=== PATIENT | male | born 1965 | race Caucasian/White ===

== ENCOUNTER 2017-07-21 10:21 | Inpatient (IN) ==
[2017-07-21] MEDS ORDERED: ALBUTEROL/IPRATROPIUM 3 ML NEB RESP TX STA ×2 (11:06→12:24)
--- NOTE | 2017-07-21 11:16 | Emergency Department Note ---
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 States problem originally started approximately a month ago with cough and congestion. Was seen at an outpatient clinic in [place] and prescribed bactrim and prednisone. States he was unable to take the bactrim due to rash. Approximately 3 days later he presented to ED in [place] with complaints of shortness of breath and congestion, was discharged from ED with azithromycin, but states he was unable to take due to nausea. States a few days after that he went back to the ED and was given Levaquin, which he states he could not take due to nausea as well. About 4 days later he presented to the ED in [place] and was admitted as an inpatient. At this time he was told he was positive for Strep in his throat, was admitted and given PCN IV as well as IM. He was discharged from [facility] on 2016 with augmentin and albuterol. States he took these meds for a couple of days and then went back to work this past Saturday (Jul 15). States symptoms became worse on this past (Jul 18) with fever, cough, shortness of breath. States these symptoms have gradually worsened over the past few days. Associated symptoms include a 40 lb weight loss over the past month and night sweats. Onset (ago): month(s) (1) Consistency: intermittent Severity: severe Quality: aching (right back in thoracic area) Allergies/Adverse Reactions: Allergies Allergy/AdvReac Type Severity Reaction Status Date / Time codeine Allergy RASH Verified 07/21/17 10:23 sulfamethoxazole Allergy RASH Verified 07/21/17 10:23 [From Bactrim] trimethoprim [From Bactrim] Allergy RASH Verified 07/21/17 10:23 Review of System - Review of System 12 point system: reviewed and no additional remarkable complaints except as stated - Review of System Constitutional: Present: fever (2-3 days ranging from 99-100F), night sweats, weight loss (40 lbs over one month) Head/Ears/Nose/Throat: Present: earache (right ear ), epistaxis (reports occassional nose bleeds over the past 2 weeks ), other (sneezing ). Absent: sore throat Respiratory: Present: cough (reports yellow/ brown sputum), other (shortness of breath) Medical,Surgical,& Family Hx - Medical History Cardio: No history of: CHF - Social History Smoking Status: Never smoker Frequency of Alcohol Use: None Type of Drug Use: None Exam Vital Signs: Vital Signs Temperature 98.2 F 07/21/17 10:24 Pulse Rate 103 H 07/21/17 14:27 Respiratory Rate 18 07/21/17 14:27 Blood Pressure 160/116 07/21/17 14:27 O2 Sat by Pulse Oximetry 93 L 07/21/17 14:27 - General General appearance: alert, in no apparent distress - Head Head exam: Present: normal inspection - Eye Eye exam: Present: PERRL - ENT ENT exam: Present: normal exam, normal oropharynx, mucous membranes moist, TM's normal bilaterally, other (no pharangeal erythema or petechiae) - Neck Neck exam: Present: normal inspection, full ROM - Chest Chest inspection: Present: normal inspection - Respiratory Respiratory exam: Present: accessory muscle use, other (crackles to right lower lung, expiratory rhonci to right upper lung ). Absent: stridor - Cardiovascular Cardiovascular exam: Present: regular rate, normal rhythm, normal heart sounds - Abdominal Exam Abdominal exam: Present: soft, normal bowel sounds. Absent: tenderness - Extremities Exam Extremities exam: Present: normal inspection, full ROM - Neurological Exam Neurological exam: Present: alert, oriented X3 - Psychiatric Psychiatric exam: Present: normal affect, normal mood - Skin Skin exam: Present: warm, dry Course Course Narrative: Patient refuses Solu-Medrol. - Consultations Consultation #1: Hospitalist Time: 14:44 (will admit to the Hospitalist ) Results - Labs CBC & BMP: 07/21/17 11:05 07/21/17 11:05 Lab Results: I have reviewed the patients labs - Diagnostic Findings Procedure: CT - chest: image reviewed by me, report reviewed by me (a few patchy areas of airspace density mass, around the hilum on the lef could indicate pneumonitis. Multiple pulmonary nodeules, some whice are calcified and sugguests a granulomatous infection. ), X-ray: image reviewed by me, report reviewed by me (no acute abnormality ) Disposition Clinical Impression: Dyspnea Case discussed with: patient Disposition: Still a Patient
--- NOTE | 2017-07-21 11:34 | XRay Report ---
XR chest 2V Indication: Cough Comparison: None available Findings: Findings: The heart and mediastinum are normal in size and configuration. The pulmonary vascularity is normal in caliber. There slight increased lung volumes and increased peribronchial density. No other abnormality is seen. Impression: Findings suggests bronchitis vs reactive airways disease. Underlying chronic lung disease may be present. PROCEDURE INTERPRETED AT [facility] DEPARTMENT OF RADIOLOGY Final Report Signed by: Dr. Philipp Montejo
[2017-07-21 11:47] LABS: Basophils # 0.1 10*3/uL (0.0-0.2); Basophils % 0.5 % (0.0-0.8); Eosinophils # 0.2 10*3/uL (0.0-0.87); Eosinophils % 1.6 % (0.00-10.9); Hematocrit 45.4 VOL% (42.0-52.0); Hemoglobin 15.4 GM/DL (14.0-18.0); Immature Granulocytes % 0.5 %; Immature Granulocytes Absolute 0.06 #; Lymphocytes # 1.1 10*3/uL (1.4-4.0); Lymphocytes % 8.5 % (21.2-54.2); Mean Corpuscular HGB Conc 33.9 GM/DL (32-36); Mean Corpuscular Hemoglobin 30 PG (27-34); Mean Corpuscular Volume 89.5 FL (87-102); Mean Platelet Volume 9.5 FL (9.6-12.0); Monocytes # 0.8 10*3/uL (0.11-0.8); Monocytes % 6.3 % (1.7-12.7); Neutrophils # 10.6 10*3/uL (1.4-7.4); Neutrophils % 82.6 % (38.7-73.9); Platelet Count 263 T/CUMM (130-400); Red Blood Count 5.07 MC/CUMM (3.8-5.5); Red Cell Distribution Width 12.6 % (9.3-17.3); White Blood Count 12.9 T/CUMM (4-12)
[2017-07-21 12:00] LABS: Alanine Aminotransferase 88 U/L (16-61); Albumin 3.3 G/DL (3.4-5.0); Alkaline Phosphatase 150 U/L (45-117); Aspartate Amino Transferase 53 U/L (0-37); Bilirubin,Total < 0.39 MG/DL (0.2-1.0); Blood Urea Nitrogen 19 MG/DL (7-18); Calcium 8.9 MG/DL (8.5-10.1); Glucose 91 MG/DL (74-106); Osmolality,Calculated 280.4 MOS/KG (273-304); Potassium 4.3 MMOL/L (3.5-5.1); Sodium 140 MMOL/L (136-145); Total Protein 7.3 G/DL (6.4-8.3)
[2017-07-21] MEDS ORDERED: methylPREDNISolone SOD SUC 125 MG/2 ML VIAL IV STA (12:25)
[2017-07-21] MEDS ORDERED: methylPREDNISolone SOD SUC 125 MG/2 ML VIAL ONE (13:03)
--- NOTE | 2017-07-21 14:24 | CT Report ---
CT chest w con Indication: Dyspnea, fever and weight loss Comparison: None available Technique: Axial CT imaging of the chest was done at 3 mm intervals with intravenous contrast. Contrast dose was 80 cc Omnipaque 350. Findings: The lungs show no evidence of infiltrates or airspace disease. Multiple scattered pulmonary nodules are present in both lungs, millimeters or less in size, some of which are calcified. There is small amount of patchy airspace density in the left lung mostly around the hilum and trace amount seen on the right. No other pulmonary nodule or mass is identified. No effusion or pneumothorax is seen. The heart, mediastinum and great vessels appear within normal limits. No other abnormality is identified. Impression: A few patchy areas of airspace density mass, around the hilum on the left could indicate pneumonitis. Multiple pulmonary nodules, some which are calcified and suggests a granulomatous infection. This CT exam was performed using one or more the following dose reduction techniques: Automated exposure control, adjustment of the MA and/or KV according to patient size, or use of iterative reconstruction technique. PROCEDURE INTERPRETED AT [facility] DEPARTMENT OF RADIOLOGY Final Report Signed by: Dr. Philipp Montejo
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
[2017-07-21 16:48] LABS: ABG Base Excess 2.9 MMOL/L (-2.5-2.5); ABG HCO3 26.9 MMOL/L (20-26); ABG Oxygen Saturation 93.6 % (95-100); ABG PCO2 43.7 MM HG (35-48); ABG PH 7.414 (7.35-7.45); ABG PO2 68.9 MM HG (80-95); ABG TCO2 23.8 MMOL/L (23-27); Allen Test Positive
[2017-07-21] MEDS ORDERED: LEVOFLOXACIN INJ 750 MG in PREMIX 1 EACH IV SCH (17:00)
[2017-07-21 18:48] LABS: HIV Antigen/Antibody Result Nonreactive (Nonreactive)
[2017-07-21] MEDS ORDERED: ONDANSETRON 4 MG/2 ML VIAL IV PRN (18:48)
[2017-07-21] MEDS ORDERED: DOCUSATE SODIUM 100 MG CAPSULE PO PRN (18:48)
[2017-07-21] MEDS ORDERED: ZALEPLON 5 MG CAPSULE PO PRN (18:48)
[2017-07-21] MEDS ORDERED: LACTULOSE 20 GM/30 ML UDCUP PO PRN (18:48)
[2017-07-21] MEDS ORDERED: LORazepam 2 MG/1 ML VIAL IV PRN (18:50)
[2017-07-21] MEDS: VANCOMYCIN INJ 1,250 MG in SODIUM CHLORIDE 0.9% 250 ML IV SCH (19:05)
[2017-07-21] MEDS: ALBUTEROL/IPRATROPIUM 3 ML NEB RESP TX PRN (20:29)
[2017-07-21] MEDS: ACYCLOVIR 200 MG CAPSULE PO SCH (21:14)
[2017-07-22 05:50] LABS: Basophils # 0.1 10*3/uL (0.0-0.2); Basophils % 0.9 % (0.0-0.8); Eosinophils # 0.4 10*3/uL (0.0-0.87); Eosinophils % 4.4 % (0.00-10.9); Hemoglobin 14.1 GM/DL (14.0-18.0); Immature Granulocytes % 0.2 %; Immature Granulocytes Absolute 0.02 #; Lymphocytes # 1.4 10*3/uL (1.4-4.0); Lymphocytes % 14.7 % (21.2-54.2); Mean Corpuscular HGB Conc 33.6 GM/DL (32-36); Mean Corpuscular Hemoglobin 30 PG (27-34); Mean Corpuscular Volume 90.5 FL (87-102); Mean Platelet Volume 9.6 FL (9.6-12.0); Monocytes % 10.1 % (1.7-12.7); Neutrophils # 6.7 10*3/uL (1.4-7.4); Neutrophils % 69.7 % (38.7-73.9); Platelet Count 236 T/CUMM (130-400); Red Blood Count 4.64 MC/CUMM (3.8-5.5); Red Cell Distribution Width 12.9 % (9.3-17.3); White Blood Count 9.6 T/CUMM (4-12)
[2017-07-22 06:22] LABS: Calcium 9.3 MG/DL (8.5-10.1); Osmolality,Calculated 276.7 MOS/KG (273-304); Potassium 4.7 MMOL/L (3.5-5.1)
[2017-07-22] MEDS: VANCOMYCIN INJ 1,250 MG in SODIUM CHLORIDE 0.9% 250 ML IV SCH ×2 (06:28→18:16)
[2017-07-22] MEDS: PANTOPRAZOLE 40 MG TABLET PO SCH (09:05)
[2017-07-22] MEDS: ACYCLOVIR 200 MG CAPSULE PO SCH ×3 (09:05→20:18)
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
--- NOTE | 2017-07-22 12:10 | Ultrasound Report ---
Venous Doppler ultrasound bilateral lower extremities Indication: Hypoxemia Comparison: None available Findings: No evidence of echogenic, noncompressible thrombus seen in the visualized veins of the extremities. Color Doppler venous waveform pattern is within normal limits. Impression: No evidence of deep venous thrombosis. Ultrasound images stored and captured. PROCEDURE INTERPRETED AT [facility] DEPARTMENT OF RADIOLOGY Final Report Signed by: Dr. Philipp Montejo
[2017-07-22 12:11] LABS: Hepatitis A Ab IgM Quant 0.14 Index; Hepatitis A Ab IgM Result Negative (Negative); Hepatitis B Core IgM Quant 0.12 Index; Hepatitis B Core IgM Result Negative (Negative); Hepatitis B Surface Ag Quant 0.15 Index; Hepatitis B Surface Ag Result Negative (Negative); Hepatitis C Virus Ab Quant 0.08 Index; Hepatitis C Virus Ab Result Negative (Negative); Prostate Specific Antigen Diag 0.8 NG/ML (0-4)
--- NOTE | 2017-07-22 12:22 | Ultrasound Report ---
Abdominal ultrasound Indication: Abdominal Pain, elevated liver function test Findings: The liver is normal in size and echogenicity. The gallbladder has been removed. The common bile duct measures 2 mm. The visualized portion of the pancreas appear within normal limits The kidneys normal in size and echogenicity without hydronephrosis or other abnormality. The right renal length is 10.4 cm. Left renal length is 10.5 cm. Spleen, aorta and IVC appear within normal limits. No free fluid or free air seen. Impression: No evidence of abnormality demonstrated. Ultrasound images stored and captured. PROCEDURE INTERPRETED AT [facility] DEPARTMENT OF RADIOLOGY Final Report Signed by: Dr. Philipp Montejo
--- NOTE | 2017-07-22 12:31 | Hospitalist Progress Note ---
Assessment and Plan (1) Nausea Status: Acute Assessment and plan: 1)weight loss- has had nausea persisting which he links to the meds he has been started on over the last month of seeking treatment for his dyspnea. 2)sweats at night- 3)dyspnea- starting [place]. has been treated for bronchitis/strep. stop antibiotics if cultures negative 4)difficulty voiding- Dr Sandhu to see. 5)transfer out of CCU. Current Visit: Yes (2) Weight loss Status: Acute Current Visit: Yes (3) COPD (chronic obstructive pulmonary disease) Status: Acute Current Visit: Yes (4) Dyspnea Status: Acute Current Visit: Yes (5) Elevated liver enzymes Status: Acute Current Visit: Yes (6) HSV-2 (herpes simplex virus 2) infection Status: Acute Current Visit: Yes (7) Pneumonitis Status: Acute Current Visit: Yes (8) Pectoris excavatum Status: Acute Current Visit: Yes Hospitalist: Subjective Interval history: Mr Stuart is doing better this morning. He is breathing better and coughing a little with scant sputum production. I have coordinated care with Dr Barksdale this morning. He reports a 25-30 pound weight loss over the last month. He denies pain or shortness of breath with exertion. It seems to primarily bother him in the night. Appreciate input from Dr Carroll also. Exam - Constitutional Vitals: Period Temp Pulse Resp BP Sys/Gamez Pulse Ox Last 24 Hr 97.6 F-99.9 F 81-103 17-38 109-160/83-116 93-98 General appearance: normal weight, no acute distress - Head Head exam: Present: normocephalic, atraumatic - Eye Eye exam: Present: EOMI. Absent: scleral icterus - Respiratory Respiratory exam: Present: clear to auscultation bilaterally - Cardiovascular Cardiovascular exam: Present: regular rate and rhythm - GI/Abdominal GI/Abdominal exam: Present: normal bowel sounds, soft. Absent: tenderness - Extremities Exam Extremities exam: Absent: edema - Neurological Exam Neurological exam: Present: alert, oriented X3 (very good historian) - Skin Skin exam: Present: normal color, warm, dry Results - Labs CBC & BMP: 07/22/17 04:24 07/22/17 04:24 Lab Results: I have reviewed the past 24 hour labs Quality Measures - Stroke Symptom Onset Unknown: No
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
[2017-07-22 13:13] LABS: Albumin 3.2 G/DL (3.4-5.0); Bilirubin,Total 0.4 MG/DL (0.2-1.0); Calcium 9.2 MG/DL (8.5-10.1); Osmolality,Calculated 275.7 MOS/KG (273-304); Potassium 4.5 MMOL/L (3.5-5.1); Total Protein 7.2 G/DL (6.4-8.3)
[2017-07-22] MEDS: ALBUTEROL/IPRATROPIUM 3 ML NEB RESP TX PRN ×2 (13:47→19:56)
[2017-07-22 14:11] LABS: Free T4 (Free Thyroxine) 1.15 NG/DL (0.76-1.46); Thyroid Stimulating Hormone 2.01 uIU/ml (0.358-3.74)
[2017-07-22] MEDS: PIPERACILLIN/TAZOBACTAM 3,375 MG in SODIUM CHLORIDE 0.9% 100 ML IV SCH ×2 (15:23→20:19)
[2017-07-22 17:24] LABS: Apearance,Urine CLEAR (Clear); Bilirubin,Urine Negative (Negative); Blood, Urine Negative (Negative); Glucose,Urine (UA) Negative (Negative); Ketones,Urine Negative (Negative); Mucus,Urine Occasional /LPF (Occasional); Nitrite,Urine Negative (Negative); Protein,Urine Negative; RBC,Urine 1 /HPF (0-4); Urine Color Yellow (Yellow); Urine Specific Gravity 1.013 (1.001-1.035); Urine Urobilinogen < 2.0 EU/DL (0.2-1.0); WBC,Urine <1 /HPF (0-6)
--- NOTE | 2017-07-22 20:33 | Order Completion Report ---
See report scanned to EMR
[2017-07-23] MEDS: PIPERACILLIN/TAZOBACTAM 3,375 MG in SODIUM CHLORIDE 0.9% 100 ML IV SCH ×3 (03:41→21:34)
--- NOTE | 2017-07-23 07:26 | XRay Report ---
XR chest 1V portable Indication: Shortness of breath Comparison: One July 2017 Findings: The heart and mediastinum are stable in size and configuration. The pulmonary vascularity is normal in caliber. A few scattered small nodular densities are present in both lungs similar to previous exam. No definite lung infiltrates, effusions, pneumothorax or other abnormality is demonstrated. Impression: No acute findings or significant changes. PROCEDURE INTERPRETED AT [facility] DEPARTMENT OF RADIOLOGY Final Report Signed by: Dr. Philipp Montejo
[2017-07-23 07:45] LABS: Basophils # 0.1 10*3/uL (0.0-0.2); Basophils % 0.8 % (0.0-0.8); Eosinophils # 0.4 10*3/uL (0.0-0.87); Eosinophils % 3.6 % (0.00-10.9); Hematocrit 45.4 VOL% (42.0-52.0); Hemoglobin 15.1 GM/DL (14.0-18.0); Immature Granulocytes % 0.4 %; Immature Granulocytes Absolute 0.04 #; Lymphocytes # 1.5 10*3/uL (1.4-4.0); Lymphocytes % 14.3 % (21.2-54.2); Mean Corpuscular HGB Conc 33.3 GM/DL (32-36); Mean Corpuscular Hemoglobin 30 PG (27-34); Mean Corpuscular Volume 90.6 FL (87-102); Mean Platelet Volume 9.2 FL (9.6-12.0); Monocytes # 0.9 10*3/uL (0.11-0.8); Monocytes % 9.1 % (1.7-12.7); Neutrophils # 7.3 10*3/uL (1.4-7.4); Neutrophils % 71.8 % (38.7-73.9); Platelet Count 237 T/CUMM (130-400); Red Blood Count 5.01 MC/CUMM (3.8-5.5); Red Cell Distribution Width 12.8 % (9.3-17.3); White Blood Count 10.1 T/CUMM (4-12)
--- NOTE | 2017-07-23 07:45 | Urology Progress Note ---
Urology - PN: Subj Interval history: So far the patient's urological evaluation is normal. His PSA is 0.8 his urinalysis is normal and abdominal ultrasound negative for urological problems. Bladder scan is pending Exam - Constitutional Vitals: Period Temp Pulse Resp BP Sys/Gamez Pulse Ox Last 24 Hr 97.4 F-98.6 F 78-112 16-26 126-145/81-101 91-99 Results - Labs CBC & BMP: 07/22/17 04:24 07/22/17 12:22
[2017-07-23 08:09] LABS: Calcium 9.4 MG/DL (8.5-10.1); Osmolality,Calculated 274.8 MOS/KG (273-304); Potassium 4.5 MMOL/L (3.5-5.1)
[2017-07-23] MEDS: ACYCLOVIR 200 MG CAPSULE PO SCH ×3 (08:13→21:34)
[2017-07-23] MEDS: VANCOMYCIN INJ 1,250 MG in SODIUM CHLORIDE 0.9% 250 ML IV SCH ×2 (08:13→18:14)
[2017-07-23] MEDS: PANTOPRAZOLE 40 MG TABLET PO SCH (08:13)
--- NOTE | 2017-07-23 08:20 | Hospitalist Progress Note ---
Assessment and Plan (1) Pneumonitis Status: Acute Assessment and plan: Chest x-ray demonstrated no evidence of an infiltrate. He continues treatment with vancomycin, Zosyn, and acyclovir. He is being followed by infectious diseases. I will defer decision about continuation of antibiotics to infectious diseases. Current Visit: Yes (2) Weight loss Status: Acute Current Visit: Yes (3) COPD (chronic obstructive pulmonary disease) Status: Acute Assessment and plan: He appears stable with no significant exacerbation of his chronic obstructive pulmonary disease. He continues to receive albuterol ipratropium nebulizer therapy. Current Visit: Yes Hospitalist: Subjective Interval history: Patient states that he feels significantly better since his hospitalization. He states that his wheezing has decreased and his shortness of breath improved. He is presently being treated with 2 antibiotics, as per infectious diseases. Exam - Constitutional Vitals: Period Temp Pulse Resp BP Sys/Gamez Pulse Ox Last 24 Hr 97.4 F-98.6 F 78-112 16-26 126-145/81-101 91-99 General appearance: no acute distress - Head Head exam: Present: normal inspection - Neck Neck exam: Present: normal inspection - Respiratory Respiratory exam: Present: other (Scattered wheezes.) - Cardiovascular Cardiovascular exam: Present: regular rate and rhythm - GI/Abdominal GI/Abdominal exam: Present: normal bowel sounds, soft, other (Nontender with no palpable masses or hepatosplenomegaly.) - Extremities Exam Extremities exam: Present: normal inspection - Neurological Exam Neurological exam: Present: alert, oriented X3 - Skin Skin exam: Present: normal color, warm, intact Results - Labs CBC & BMP: 07/23/17 07:27 07/23/17 07:27 Quality Measures - Stroke Symptom Onset Unknown: No
--- NOTE | 2017-07-23 12:32 | Pulmonology Progress Note ---
Pulmonary - PN: Subj Interval history: Jose Rafael Pierceery, [facility]-, acting as scribe for Dr. Anton Barksdale Mr. Stuart is a 51-year-old white male who is on initial pulmonary consultation on 07/22/2017. At that time, our impressions were: 1. Probable bronchitis. Recent history of strep throat. Patient notes that he got better with penicillin. 2. Persistent nausea of undetermined etiology 3. Weight loss probably secondary to #2 and secondary to working outside in hot weather. 4. Abnormal chest x-ray. 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 I do not think we are going to find active disease but will look forward. 5. Abnormal liver function test. No past history of cholecystectomy 6. Hyperinflated lungs most prominent at the bases. This is probably emphysema from smoking as noted above. Look for alpha-1 antitrypsin deficiency. If this happens to be present we will have to look for associated liver disease 7. Difficulty urinating. History of BPH. Pain which radiates to the right testicle 07/23/2017. The patient was seen today along with Xiomara Oakes RN. We have discussed the case with Dr. Vallejo and coordinated our care. He is now been moved out of the negative pressure room in CCU and up to the medical floor. He states that his breathing is much improved. His chest x-ray remains fairly normal but with continued hyperlucency at the bases. Alpha-1 antitrypsin level is pending. Sputum Gram stain showed few gram-positive cocci, but sputum culture grew no organisms. Hepatitis screen was negative. The patient denies alcohol use. Ultrasound of the abdomen showed no abnormalities. Echocardiogram done 07/22/[address] Long showed EF 55%, mildly dilated right ventricle with normal systolic function, and mild aortic valve sclerosis without stenosis. The pulmonary artery pressure was not spoken to. He has been seen in urology consultation by Dr. Sandhu. His note has been reviewed. As noted before, the patient smoked marijuana fairly frequently until approximately 2 months ago. There is incidence of aspergillus infection secondary to marijuana use so we will check sputum for fungal stains and cultures. We are also going to obtain a urine drug screen, RA, OLGA, sed rate, and C-reactive protein. He has remained afebrile for the past 24 hours. Medications have been reviewed. We made no changes today. Labs have been reviewed. White count is 10,100 with 71.8% segs; H&H 15.1/45.4; platelet count 237,000; creatinine 1.00, BUN 18, electrolytes are normal; vancomycin trough 10.2; urinalysis yesterday showed no evidence of infection; hepatitis screen was negative; PSA 0.8; amylase and lipase are normal at 67 and 198.0 respectively; TSH and free T4 were normal at 2.010 and 1.15 respectively. Exam (Progress Note) - Constitutional Vitals: Period Temp Pulse Resp BP Sys/Gamez Pulse Ox Last 24 Hr 97.4 F-98.7 F 80-112 16-20 115-162/70-90 90-99 Exam: Chest is fairly clear; wheeze free Heart no gallop Abdomen less tender in the right upper quadrant; bowel sounds are positive 4 Extremities with nothing to suggest acute deep venous thrombophlebitis Psychiatric oriented 3 Neurologic long-term motor function is intact Plan: Sputum for fungal stains and cultures. Urine drug screen. RA, OLGA, sed rate, and C-reactive protein. Tomorrow, we will recheck chest x-ray in room air ABGs. Continue other present treatment. See orders. Results - Labs CBC & BMP: 07/23/17 07:27 07/23/17 07:27
[2017-07-23 13:50] LABS: Rheumatoid Factor < 15 IU/ML (<15)
[2017-07-23 14:41] LABS: Mycoplasma pneumoniae Ab, IgG 1.65 index (<=0.90); Mycoplasma pneumoniae Ab, IgM 0.26 index (<=0.90)
--- NOTE | 2017-07-23 16:13 | Infectious Disease Progress ---
Assessment and Plan (1) Dyspnea Status: Acute Assessment and plan: Case discussed with Dr. Barksdale today. Patient probably has bronchitis. So far all cultures are negative. Recommendations: 1. I would treat with vancomycin and Zosyn for 5 days 2. Follow-up pending studies including fungal serologies Current Visit: Yes (2) Pneumonitis Status: Acute Assessment and plan: Continue empiric antibiotics as above. Current Visit: Yes Infectious Disease - PN: Subj Interval history: Patient out of ICU, says he is breathing much better. Cough is less and he has not had any fever. Infectious Disease Exam (PN) - Constitutional Vitals: Temp Pulse Resp BP Pulse Ox 98.7 F 85 18 115/70 90 L 07/23/17 11:29 07/23/17 11:29 07/23/17 11:29 07/23/17 11:29 07/23/17 11:29 General appearance: no acute distress Exam: General appearance: Much less dyspneic than yesterday - Eye Eye exam: Present: EOMI. no icterus Pupils: Present: KATIE - ENT ENT exam: no oropharyhgeal exudates - Respiratory Respiratory exam: vesicular BS, fine basilar crepitations now resolved, No wheezes - Cardiovascular Cardiovascular exam: regular rate and rhythm, no murmurs - GI/Abdominal GI/Abdominal exam: normal bowel sounds, soft, non-tender, no organomegaly or mass - Extremities Exam Extremities exam: no edema - Skin Skin exam: no rash Results - Labs CBC & BMP: 07/23/17 07:27 07/23/17 07:27 Lab Results: I have reviewed the past 24 hour labs Quality Measures - Stroke Symptom Onset Unknown: No
[2017-07-24] MEDS: VANCOMYCIN INJ 1,250 MG in SODIUM CHLORIDE 0.9% 250 ML IV SCH ×3 (00:39→17:01)
[2017-07-24] MEDS: ACETAMINOPHEN 325 MG TABLET PO PRN ×2 (00:41→15:41)
[2017-07-24 03:54] LABS: ABG Base Excess 4.8 MMOL/L (-2.5-2.5); ABG HCO3 30.4 MMOL/L (20-26); ABG Oxygen Saturation 89.1 % (95-100); ABG PCO2 48.5 MM HG (35-48); ABG PH 7.415 (7.35-7.45); ABG TCO2 31.9 MMOL/L (23-27); Allen Test Positive; Pt O2 Delivery Device Room Air
[2017-07-24] MEDS: PIPERACILLIN/TAZOBACTAM 3,375 MG in SODIUM CHLORIDE 0.9% 100 ML IV SCH ×3 (04:50→21:00)
[2017-07-24 06:25] LABS: Basophils # 0.1 10*3/uL (0.0-0.2); Eosinophils # 0.5 10*3/uL (0.0-0.87); Eosinophils % 5.4 % (0.00-10.9); Hematocrit 41.7 VOL% (42.0-52.0); Hemoglobin 14.5 GM/DL (14.0-18.0); Immature Granulocytes % 0.5 %; Immature Granulocytes Absolute 0.04 #; Lymphocytes # 1.3 10*3/uL (1.4-4.0); Lymphocytes % 15.6 % (21.2-54.2); Mean Corpuscular HGB Conc 34.8 GM/DL (32-36); Mean Corpuscular Hemoglobin 31 PG (27-34); Mean Corpuscular Volume 89.9 FL (87-102); Mean Platelet Volume 9.5 FL (9.6-12.0); Monocytes # 0.7 10*3/uL (0.11-0.8); Neutrophils # 5.8 10*3/uL (1.4-7.4); Neutrophils % 69.5 % (38.7-73.9); Platelet Count 208 T/CUMM (130-400); Red Blood Count 4.64 MC/CUMM (3.8-5.5); Red Cell Distribution Width 12.9 % (9.3-17.3); White Blood Count 8.3 T/CUMM (4-12)
[2017-07-24 06:50] LABS: Calcium 8.9 MG/DL (8.5-10.1); Osmolality,Calculated 281.4 MOS/KG (273-304); Potassium 4.4 MMOL/L (3.5-5.1)
--- NOTE | 2017-07-24 07:03 | XRay Report ---
XR chest 2V Indication: Shortness of breath, fever Comparison: 23 July 2017 Findings: The heart and mediastinum are normal in size and configuration. The pulmonary vascularity is normal in caliber. Scattered nodular densities present in both lungs similar to previous exam. No other lung infiltrates, effusions, pneumothorax or other abnormality is demonstrated. Impression: No significant change. PROCEDURE INTERPRETED AT [facility] DEPARTMENT OF RADIOLOGY Final Report Signed by: Dr. Philipp Montejo
--- NOTE | 2017-07-24 07:40 | Urology Progress Note ---
Urology - PN: Subj Interval history: The patient's urological evaluation is negative. His PSA is 0.8 and he has a negative urinalysis negative abdominal ultrasound and low residual on bladder scan. The patient's symptoms have improved. I have recommended that he start annual prostate screening yearly at age 52. I will see him again as needed Exam - Constitutional Vitals: Period Temp Pulse Resp BP Sys/Gamez Pulse Ox Last 24 Hr 97.4 F-98.7 F 82-86 16-20 115-162/70-96 90-96 Results - Labs CBC & BMP: 07/24/17 05:29 07/24/17 05:29
--- NOTE | 2017-07-24 07:55 | Discharge Summary ---
Hospital Course - Hospital Course Hospital Course: Mr. Stuart is a 51 year old white male with no significant past medical history who presents to the ED today for further evaluation of severe HARO that has been ongoing for about one month now. The patient reports an extensive history of upper respiratory illness for which he was seen several different times at outpatient clinics as well as at [facility]. Most recently , he tested positive for strep throat and was treated with IV and IM PCN and discharged home with oral augmentin. He admits to medical noncompliance with the augmentin and returns to the ED today with worsening cough productive of yellow/brown sputum, chills, night sweats and HARO. On exam, the patient is noticeably short of breath with conversation and tachycardic. CXR shows findings suggestive of bronchitis vs reactive airway disease vs underlying chronic lung disease. Chest CT suggests pneumonitis; multiple pulmonary nodules , some of which are calcified, suggest a granulomatous infection. Lab work is significant for: WBC 12.9, hemoglobin 15.4, hematocrit 45.4, AST 53, ALT 88, alk phos 150. 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 He has never tested positive for Tb. Patient was admitted to the hospital with a diagnosis of acute bronchitis. He was empirically treated with intravenous vancomycin and Zosyn. He was also empirically treated with oral acyclovir for possible recurrent HSV 2 infection. He was seen in consultation by Dr. Minor of ID and Dr. Rodríguez of pulmonary. They concurred with the plan of treatment including the addition of albuterol ipratropium nebulizer therapy. Chest x-ray did not demonstrate evidence of pneumonia. Patient improved significantly during his hospitalization. At the time of his discharge he was significantly better. Diagnosis - Discharge Diagnosis (1) Pneumonitis Status: Ruled-out (2) Weight loss Status: Chronic (3) COPD (chronic obstructive pulmonary disease) Status: Chronic (4) Bronchitis, acute Status: Acute (5) HSV-2 (herpes simplex virus 2) infection Status: Acute Discharge Plan - Discharge Data Disposition: Disch To Home/Self Care Condition at Discharge: Stable Discharge Diet: advance to your usual diet Activity: resume usual activities as tolerated - Discharge Medications New Albuterol Sulfate [Ventolin HFA] 2 puff INH Q6H PRN #1 inhaler PRN Reason: Shortness Of Breath/Wheezing cephALEXin [Keflex] 500 mg PO Q8HR #9 capsule Acyclovir Cap/Tab [Zovirax Cap/Tab] 400 mg PO TID #9 capsule - Follow Up or Referral - Forms/Instructions Exam - Constitutional Vitals: Period Temp Pulse Resp BP Sys/Gamez Pulse Ox Last 24 Hr 97.4 F-98.7 F 82-86 16-20 115-162/70-96 90-96 Discharge Results Procedures and tests throughout hospitalization: Pending Orders 07/21/17 11:05 Blood Culture Stat 07/21/17 17:14 Coxiella burnetii (Q fever)PCR Routine Histoplasma Ab, S Routine Histoplasma Antigen,Urine Routine 07/22/17 04:24 Legionella Pneumophilia Ab Routine 07/22/17 09:13 Sputum Culture and Gram Stain Routine 07/22/17 12:22 [id number], S Routine Procalcitonin, S Routine 07/22/17 17:00 Legionella Ag, Urine Routine 07/23/17 12:46 Anti-nuclear Antibody Screen Routine Drug Screen Prescrip/OTC Urine Routine Labs on day of discharge: Labs from last 24 hours 07/24/17 07/24/17 07/24/17 05:29 05:29 03:54 WBC 8.3 RBC 4.64 Hgb 14.5 Hct 41.7 L MCV 89.9 MCH 31 MCHC 34.8 RDW 12.9 Plt Count 208 MPV 9.5 L Neut % (Auto) 69.5 Lymph % (Auto) 15.6 L [place] % (Auto) 8.0 Eos % (Auto) 5.4 Baso % (Auto) 1.0 H Neut # (Auto) 5.8 Lymph # (Auto) 1.3 L [place] # (Auto) 0.7 Eos # (Auto) 0.5 Baso # (Auto) 0.1 Immature Gran % 0.5 Nucleated RBC % 0.0 Immature Gran # 0.04 Nucleated RBCs # 0.00 Immature Plt Fraction 0.0 ESR Westergren ABG pH 7.415 ABG pCO2 48.5 H ABG pO2 53.0 L ABG HCO3 30.4 H ABG Total CO2 31.9 H ABG O2 Saturation 89.1 L ABG Base Excess 4.8 H FiO2 21.00 Sodium 140 Potassium 4.4 Chloride 103 Carbon Dioxide 34 H Anion Gap 7.4 BUN 20 H Creatinine 0.80 GFR Calculation 113 BUN/Creatinine Ratio 25.00 H Glucose 100 Calculated Osmolality 281.4 Calcium 8.9 C-Reactive Protein Angiotensin Convert Enz Vancomycin Trough Rheumatoid Factor M.pneumoniae IgG Titer M.pneumoniae IgM Titer 07/23/17 07/23/17 07/23/17 12:46 12:46 07:27 WBC RBC Hgb Hct MCV MCH MCHC RDW Plt Count MPV Neut % (Auto) Lymph % (Auto) [place] % (Auto) Eos % (Auto) Baso % (Auto) Neut # (Auto) Lymph # (Auto) [place] # (Auto) Eos # (Auto) Baso # (Auto) Immature Gran % Nucleated RBC % Immature Gran # Nucleated RBCs # Immature Plt Fraction ESR Westergren 34 H ABG pH ABG pCO2 ABG pO2 ABG HCO3 ABG Total CO2 ABG O2 Saturation ABG Base Excess FiO2 Sodium Potassium Chloride Carbon Dioxide Anion Gap BUN Creatinine GFR Calculation BUN/Creatinine Ratio Glucose Calculated Osmolality Calcium C-Reactive Protein 2.23 H Angiotensin Convert Enz Vancomycin Trough 10.2 Rheumatoid Factor < 15 M.pneumoniae IgG Titer M.pneumoniae IgM Titer 07/23/17 07/21/17 07/21/17 07:27 17:14 17:14 WBC RBC Hgb Hct MCV MCH MCHC RDW Plt Count MPV Neut % (Auto) Lymph % (Auto) [place] % (Auto) Eos % (Auto) Baso % (Auto) Neut # (Auto) Lymph # (Auto) [place] # (Auto) Eos # (Auto) Baso # (Auto) Immature Gran % Nucleated RBC % Immature Gran # Nucleated RBCs # Immature Plt Fraction ESR Westergren ABG pH ABG pCO2 ABG pO2 ABG HCO3 ABG Total CO2 ABG O2 Saturation ABG Base Excess FiO2 Sodium 137 Potassium 4.5 Chloride 101 Carbon Dioxide 31 Anion Gap 9.5 BUN 18 Creatinine 1.00 GFR Calculation 95 BUN/Creatinine Ratio 18.00 Glucose 94 Calculated Osmolality 274.8 Calcium 9.4 C-Reactive Protein Angiotensin Convert Enz 22 Vancomycin Trough Rheumatoid Factor M.pneumoniae IgG Titer 1.65 M.pneumoniae IgM Titer 0.26 Preliminary micro results at discharge 07/21/17 11:05 Blood Culture - Preliminary Blood No growth at 1 day 07/21/17 11:05 Blood Culture - Preliminary Blood No growth at 1 day DS: Provider Date of admission: 07/21/17 14:40 Primary care physician: . No PCP Attending physician on admission: Zackary Huang MD Consults: 07/21/17 16:39 Consult to Physician [CONS] Routine Comment: Pneumonia/hypoxia Consulting Provider: Anton Barksdale Consulting Provider Notified: Yes When should Consulting Provider be notified: In am Consult to Specialist Group: Pulmonology When should Consulting Provider be notified: In am Person Notified: aware Date Notified: 07/23/17 Time Notified: 10:02 07/21/17 16:57 Consult to Physician [CONS] Routine Comment: Granulomatous pneumonia/hypoxia Consulting Provider: Mirlande Carroll Consult to Specialist Group: Infectious Disease When should Consulting Provider be notified: In am Person Notified: [email or web address] Date Notified: 07/22/17 Time Notified: 09:51 Consult Notification Comment: will let dr delgado know 07/21/17 17:20 Consult to Dietitian [CONS] Routine Reason for Dietitian: Diet Instruction 07/22/17 10:31 Consult to Physician [CONS] Routine Comment: urinary retention Consulting Provider: [facility] Person Notified: aware Date Notified: 07/23/17 Time Notified: 10:02 Discharging clinician: Rakesh Sharma
[2017-07-24] MEDS: ACYCLOVIR 200 MG CAPSULE PO SCH ×3 (09:17→20:02)
[2017-07-24] MEDS: PANTOPRAZOLE 40 MG TABLET PO SCH (09:17)
--- NOTE | 2017-07-24 12:02 | Pulmonology Progress Note ---
Pulmonary - PN: Subj Interval history: Jose Rafael Pierceery, [facility]-, acting as scribe for Dr. Anton Barksdale Mr. Stuart is a 51-year-old white male who is on initial pulmonary consultation on 07/22/2017. At that time, our impressions were: 1. Probable bronchitis. Recent history of strep throat. Patient notes that he got better with penicillin. 2. Persistent nausea of undetermined etiology 3. Weight loss probably secondary to #2 and secondary to working outside in hot weather. 4. Abnormal chest x-ray. 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 I do not think we are going to find active disease but will look forward. 5. Abnormal liver function test. No past history of cholecystectomy 6. Hyperinflated lungs most prominent at the bases. This is probably emphysema from smoking as noted above. Look for alpha-1 antitrypsin deficiency. If this happens to be present we will have to look for associated liver disease 7. Difficulty urinating. History of BPH. Pain which radiates to the right testicle 07/23/2017. The patient was seen today along with Xiomara Oakes RN. We have discussed the case with Dr. Vallejo and coordinated our care. He is now been moved out of the negative pressure room in CCU and up to the medical floor. He states that his breathing is much improved. His chest x-ray remains fairly normal but with continued hyperlucency at the bases. Alpha-1 antitrypsin level is pending. Sputum Gram stain showed few gram-positive cocci, but sputum culture grew no organisms. Hepatitis screen was negative. The patient denies alcohol use. Ultrasound of the abdomen showed no abnormalities. Echocardiogram done 07/22/[address] Long showed EF 55%, mildly dilated right ventricle with normal systolic function, and mild aortic valve sclerosis without stenosis. The pulmonary artery pressure was not spoken to. He has been seen in urology consultation by Dr. Sandhu. His note has been reviewed. As noted before, the patient smoked marijuana fairly frequently until approximately 2 months ago. There is incidence of aspergillus infection secondary to marijuana use so we will check sputum for fungal stains and cultures. We are also going to obtain a urine drug screen, RA, OLGA, sed rate, and C-reactive protein. He has remained afebrile for the past 24 hours. Medications have been reviewed. We made no changes today. Labs have been reviewed. White count is 10,100 with 71.8% segs; H&H 15.1/45.4; platelet count 237,000; creatinine 1.00, BUN 18, electrolytes are normal; vancomycin trough 10.2; urinalysis yesterday showed no evidence of infection; hepatitis screen was negative; PSA 0.8; amylase and lipase are normal at 67 and 198.0 respectively; TSH and free T4 were normal at 2.010 and 1.15 respectively. 07/24/2017. The patient was seen today along with Alli Freeman RN. The patient 's room air ABGs this morning showed a PO2 of only 53.0. All things considered , we feel that it is necessary to proceed with CT of the chest with PE protocol. We have discussed this with Dr. Sharma as this will forego his discharge for the time being. Also, Dr. Vallejo's note yesterday was reviewed and she recommended 5 days of IV antibiotics with vancomycin and Zosyn and today is only day 3 of the patient's hospitalization. Clearly he is improved, but we agree with Dr. Vallejo's recommendations. Alpha-1 antitrypsin level is also still pending. Medications have been reviewed. We made no changes today. Labs been reviewed. White count is 8300 with 69.5% segs; H&H 14.5/41.7; platelet count 208,000; sed rate 34; C-reactive protein 2.23; creatinine 0.0, BUN 20, electrolytes are normal; rheumatoid factor was negative and OLGA screen was negative Microbiology was reviewed. There are no positive cultures. Exam (Progress Note) - Constitutional Vitals: Period Temp Pulse Resp BP Sys/Gamez Pulse Ox Last 24 Hr 97.2 F-98.4 F 74-86 18-20 126-139/86-97 94-96 Exam: Chest is fairly clear; wheeze free Heart no gallop Abdomen less tender in the right upper quadrant; bowel sounds are positive 4 Extremities with nothing to suggest acute deep venous thrombophlebitis Psychiatric oriented 3 Neurologic long-term motor function is intact Plan: Follow-up sputum for fungal stains and cultures when available. Follow- up urine drug screen. CT the chest with PE protocol today. Agree with Dr. Vallejo recommendations regarding IV antibiotic therapy. See orders. Results - Labs CBC & BMP: 07/24/17 05:29 07/24/17 05:29 Specialty Discharge - Follow Up or Referrals
--- NOTE | 2017-07-24 12:40 | CT Report ---
CT chest pulmonary embolism Indication: Chest pain Comparison: None available Technique: Axial CT imaging of the chest is performed with intravenous contrast. Contrast dose is 80 cc of Omnipaque 350. Findings: No thrombus or other abnormality is identified in the pulmonary arteries or veins. The pulmonary vessel caliber is within normal limits. The heart, mediastinum and great vessels appear within normal limits. Multiple calcified of pulmonary nodules and a few noncalcified nodules are present, miliary-like pattern similar to previous study. There is patchy areas of hazy airspace density in both lungs not significantly changed from previous evaluation. This is most prominent in the left hilar and left upper lungs. Remaining pulmonary parenchyma shows no evidence of airspace disease or abnormal density. No effusion or pneumothorax is present. Impression: No evidence of pulmonary thromboembolism. Remaining pulmonary findings are stable when compared to previous exam. This CT exam was performed using one or more the following dose reduction techniques: Automated exposure control, adjustment of the MA and/or KV according to patient size, or use of iterative reconstruction technique. PROCEDURE INTERPRETED AT [facility] DEPARTMENT OF RADIOLOGY Final Report Signed by: Dr. Philipp Montejo
--- NOTE | 2017-07-24 13:34 | Infectious Disease Progress ---
Assessment and Plan (1) Dyspnea Status: Acute Assessment and plan: Probable bronchitis, very mild pneumonia at most in left perihilar area. Patient improving. The bronchodilators are probably helping but is hard to say that there is no benefit with the antibiotics. Recommendations: Because the patient has been in and out of hospital multiple times over the past month, I would treat with vancomycin and Zosyn for 5 days, so he has 2 more to go here in the hospital, or at home with home health if he qualifies. Current Visit: Yes (2) Pneumonitis Status: Ruled-out Assessment and plan: Continue empiric antibiotics as above. Current Visit: Yes Infectious Disease - PN: Subj Interval history: Patient continues to improve daily. Has been ambulating about the floor with no breathing difficulties. He is coughing up more sputum he says no hemoptysis. No fever. No nausea vomiting or diarrhea. Infectious Disease Exam (PN) - Constitutional Vitals: Temp Pulse Resp BP Pulse Ox 97.6 F 80 19 142/87 99 07/24/17 12:03 07/24/17 12:03 07/24/17 12:03 07/24/17 12:03 07/24/17 12:03 General appearance: no acute distress Exam: General appearance: Comfortable - Eye Eye exam: Present: EOMI. no icterus Pupils: Present: KATIE - Respiratory Respiratory exam: Clear to auscultation - Cardiovascular Cardiovascular exam: regular rate and rhythm, no murmurs - GI/Abdominal GI/Abdominal exam: normal bowel sounds, soft, non-tender, no organomegaly or mass - Extremities Exam Extremities exam: no edema - Skin Skin exam: no rash Results - Labs CBC & BMP: 07/24/17 05:29 07/24/17 05:29 Lab Results: I have reviewed the past 24 hour labs - Diagnostic Findings Procedure: CT - chest: image reviewed by me, report reviewed by me (No new findings on today's CT scan) Quality Measures - Stroke Symptom Onset Unknown: No Specialty Discharge - Follow Up or Referrals
[2017-07-24 13:56] LABS: Coxiella burnetii PCR Negative (Negative); Specimen Source BLOOD
[2017-07-25] MEDS: PIPERACILLIN/TAZOBACTAM 3,375 MG in SODIUM CHLORIDE 0.9% 100 ML IV SCH ×3 (04:08→20:15)
--- NOTE | 2017-07-25 08:28 | Hospitalist Progress Note ---
Assessment and Plan (1) Pneumonitis Status: Ruled-out Assessment and plan: Today is day 5 of intravenous vancomycin for his acute bronchitis. He will be discharged after receiving his vancomycin today. Current Visit: Yes (2) Weight loss Status: Chronic Current Visit: Yes (3) COPD (chronic obstructive pulmonary disease) Status: Chronic Assessment and plan: He appears stable with no significant exacerbation of his chronic obstructive pulmonary disease. He continues to receive albuterol ipratropium nebulizer therapy. Arterial blood gases yesterday demonstrated pH 7.415, PCO2 48.5, and PO2 53.0. These are most compatible with chronic respiratory failure with hypoxemia. Current Visit: Yes (4) Bronchitis, acute Status: Acute Current Visit: Yes (5) HSV-2 (herpes simplex virus 2) infection Status: Acute Current Visit: Yes Hospitalist: Subjective Interval history: Patient's discharge was delayed yesterday in order for him to complete 5 days of intravenous vancomycin. Today is day 5. A CT scan of his chest demonstrated no evidence of pulmonary embolism and no significant changes. He wishes to go home today to participate in his son's birthday democrat. I will let him do so after he receives his dose of intravenous vancomycin. Exam - Constitutional Vitals: Period Temp Pulse Resp BP Sys/Gamez Pulse Ox Last 24 Hr 97.4 F-98.3 F 80-93 18-20 139-162/62-96 91-99 General appearance: no acute distress - Head Head exam: Present: normal inspection - Neck Neck exam: Present: normal inspection - Respiratory Respiratory exam: Present: clear to auscultation bilaterally - Cardiovascular Cardiovascular exam: Present: regular rate and rhythm - GI/Abdominal GI/Abdominal exam: Present: normal bowel sounds, soft, other (Nontender with no palpable masses or hepatosplenomegaly.) - Extremities Exam Extremities exam: Present: normal inspection - Skin Skin exam: Present: normal color, warm, intact Results - Labs CBC & BMP: 07/24/17 05:29 07/24/17 05:29 Quality Measures - Stroke Symptom Onset Unknown: No Specialty Discharge - Follow Up or Referrals
[2017-07-25] MEDS: VANCOMYCIN INJ 1,250 MG in SODIUM CHLORIDE 0.9% 250 ML IV SCH ×3 (08:55→16:53)
[2017-07-25] MEDS: ACYCLOVIR 200 MG CAPSULE PO SCH ×3 (08:55→20:15)
[2017-07-25] MEDS: PANTOPRAZOLE 40 MG TABLET PO SCH (08:55)
[2017-07-25] MEDS ORDERED: AMINOPHYLLINE 250 MG in SODIUM CHLORIDE 0.9% 100 ML IV ONE (10:44)
--- NOTE | 2017-07-25 10:45 | Pulmonology Progress Note ---
Pulmonary - PN: Subj Interval history: Mr. Stuart is a 51-year-old white male who is on initial pulmonary consultation on 07/22/2017. At that time, our impressions were: 1. Probable bronchitis. Recent history of strep throat. Patient notes that he got better with penicillin. 2. Persistent nausea of undetermined etiology 3. Weight loss probably secondary to #2 and secondary to working outside in hot weather. 4. Abnormal chest x-ray. This will probably turning sander tender to be old histoplasmosis. I do not think we are going to find active disease but will look forward. 5. Abnormal liver function test. No past history of cholecystectomy 6. Hyperinflated lungs most prominent at the bases. This is probably emphysema from smoking as noted above. Look for alpha-1 antitrypsin deficiency. If this happens to be present we will have to look for associated liver disease 7. Difficulty urinating. History of BPH. Pain which radiates to the right testicle 07/23/2017. The patient was seen today along with Xiomara Oakes RN. We have discussed the case with Dr. Vallejo and coordinated our care. He is now been moved out of the negative pressure room in CCU and up to the medical floor. He states that his breathing is much improved. His chest x-ray remains fairly normal but with continued hyperlucency at the bases. Alpha-1 antitrypsin level is pending. Sputum Gram stain showed few gram-positive cocci, but sputum culture grew no organisms. Hepatitis screen was negative. The patient denies alcohol use. Ultrasound of the abdomen showed no abnormalities. Echocardiogram done 07/22/[address] Long showed EF 55%, mildly dilated right ventricle with normal systolic function, and mild aortic valve sclerosis without stenosis. The pulmonary artery pressure was not spoken to. He has been seen in urology consultation by Dr. Sandhu. His note has been reviewed. As noted before, the patient smoked marijuana fairly frequently until approximately 2 months ago. There is incidence of aspergillus infection secondary to marijuana use so we will check sputum for fungal stains and cultures. We are also going to obtain a urine drug screen, RA, OLGA, sed rate, and C-reactive protein. He has remained afebrile for the past 24 hours. Medications have been reviewed. We made no changes today. Labs have been reviewed. White count is 10,100 with 71.8% segs; H&H 15.1/45.4; platelet count 237,000; creatinine 1.00, BUN 18, electrolytes are normal; vancomycin trough 10.2; urinalysis yesterday showed no evidence of infection; hepatitis screen was negative; PSA 0.8; amylase and lipase are normal at 67 and 198.0 respectively; TSH and free T4 were normal at 2.010 and 1.15 respectively. 07/24/2017. The patient was seen today along with Alli Freeman RN. The patient 's room air ABGs this morning showed a PO2 of only 53.0. All things considered , we feel that it is necessary to proceed with CT of the chest with PE protocol. We have discussed this with Dr. Sharma as this will forego his discharge for the time being. Also, Dr. Vallejo's note yesterday was reviewed and she recommended 5 days of IV antibiotics with vancomycin and Zosyn and today is only day 3 of the patient's hospitalization. Clearly he is improved, but we agree with Dr. Vallejo's recommendations. Alpha-1 antitrypsin level is also still pending. Medications have been reviewed. We made no changes today. Labs been reviewed. White count is 8300 with 69.5% segs; H&H 14.5/41.7; platelet count 208,000; sed rate 34; C-reactive protein 2.23; creatinine 0.0, BUN 20, electrolytes are normal; rheumatoid factor was negative and OLGA screen was negative Microbiology was reviewed. There are no positive cultures. 07/25/2017. This morning the patient had pulmonary function tests. This showed small airways disease with rather large positive response to inhaled bronchodilators. Patient also appeared to have restrictive lung disease. This is not explained by his chest x-ray ordered a CT scan of his chest. He does have pectus excavatum but not quite enough to explain this amount. I reexamined him today and had him exhale in a certain way and it turns out that he has high pitch peripheral wheezes especially at the bases of his lungs which persist long beyond the end of expiration. Previously he was not moving enough air to produce wheezes. I have discussed this with Dr. Sharma who is agreeable to keeping the patient in the hospital for additional treatment. I think one day will probably prove the point and we can send him home on medicines by mouth. I am going to start him on IV Aminophyllin and will check a level tomorrow morning. He will have p.o. albuterol. I will give this as liquid since this is cheaper as an outpatient as compared to the pills. He will be on Singulair. He says he does not tolerate Solu-Medrol well so I will use a low dose of hydrocortisone phosphate IV push. Will continue his IV antibiotics. Patient has no evidence of alpha 1 antitrypsin deficiency. All studies for collagen vascular disease of also been negative. Exam (Progress Note) - Constitutional Vitals: Period Temp Pulse Resp BP Sys/Gamez Pulse Ox Last 24 Hr 97.2 F-98.4 F 74-86 18-20 126-139/86-97 94-96 Exam: Face. Symmetrical. No edema of the lips or tongue. Neck. No meningismus. No mass. Lymphatics. No submandibular cervical supraclavicular or epitrochlear Chest is fairly clear; patient has high-pitched peripheral wheezes especially at the bases. These persist beyond the end of expiration. Heart no gallop Abdomen less tender in the right upper quadrant; bowel sounds are positive 4 Extremities with nothing to suggest acute deep venous thrombophlebitis Psychiatric oriented 3 Neurologic long-tract motor function is intact Plan: 07/24/2017. 1. Follow-up sputum for fungal stains and cultures when available. 2. Follow-up urine drug screen. 3. CT the chest with PE protocol today. 4. Agree with Dr. Vallejo recommendations regarding IV antibiotic therapy. 5. See orders. 07/25/2017. 1. Dr. Sharma and I have discussed the case and coordinating her care 2. IV Aminophyllin. Level in the morning. 2. P.o. albuterol 3. Singulair 4. Hydrocortisone phosphate. 5. See my notes above Exam (Progress Note) - Constitutional Vitals: Period Temp Pulse Resp BP Sys/Gamez Pulse Ox Last 24 Hr 97.2 F-98.3 F 79-93 18-20 139-162/62-96 91-99 Results - Labs CBC & BMP: 07/24/17 05:29 07/24/17 05:29 Specialty Discharge - Follow Up or Referrals
[2017-07-25 11:12] LABS: ABG Base Excess 4.5 MMOL/L (-2.5-2.5); ABG HCO3 29.3 MMOL/L (20-26); ABG Oxygen Saturation 92.5 % (95-100); ABG PCO2 44.2 MM HG (35-48); ABG PO2 60.4 MM HG (80-95); ABG TCO2 30.7 MMOL/L (23-27)
[2017-07-25] MEDS: HYDROCORTISONE 100 MG VIAL IV SCH ×2 (11:17→22:27)
[2017-07-25] MEDS: MONTELUKAST 10 MG TABLET PO SCH (11:17)
[2017-07-25 14:56] LABS: Histoplasma Immnodiffusion Negative (Negative)
[2017-07-25] MEDS ORDERED: AMINOPHYLLINE 500 MG in SODIUM CHLORIDE 0.9% 480 ML IV SCH (15:08)
[2017-07-25] MEDS: ALBUTEROL 0.4 MG/ML 30 ML/BOTTLE PO SCH ×2 (15:52→22:26)
--- NOTE | 2017-07-25 17:00 | Infectious Disease Progress ---
Assessment and Plan (1) Dyspnea Status: Acute Assessment and plan: Patient generally much better than when he first was admitted. The only abnormal study with had is a histoplasma antibody but the titer is very low at 1 :16. This is not necessarily indicative of acute infection. Recommendations: Patient will complete 5 days of antibiotic therapy. I can see patient in the office in 2-4 weeks time and I will repeat histoplasma serologies , to assess for fourfold rise in titer. If he does have a significant rise in the titers then this would be supportive of recent histoplasma infection. Current Visit: Yes (2) Pneumonitis Status: Ruled-out Assessment and plan: as above. Current Visit: Yes Infectious Disease - PN: Subj Interval history: Patient doing well, says breathing treatments/bronchodilator therapy per Dr. Rodríguez helping him tremendously. He has not had fever. Tolerating antibiotics without nausea vomiting or diarrhea. Infectious Disease Exam (PN) - Constitutional Vitals: Temp Pulse Resp BP Pulse Ox 97.7 F 89 20 115/84 92 L 07/25/17 11:00 07/25/17 11:00 07/25/17 11:00 07/25/17 11:00 07/25/17 11:00 General appearance: no acute distress Exam: General appearance: Comfortable - Eye Eye exam: Present: EOMI. no icterus Pupils: Present: KATIE - Respiratory Respiratory exam: Clear to auscultation - Cardiovascular Cardiovascular exam: regular rate and rhythm, no murmurs - GI/Abdominal GI/Abdominal exam: normal bowel sounds, soft, non-tender, no organomegaly or mass - Extremities Exam Extremities exam: no edema - Skin Skin exam: no rash Results - Labs CBC & BMP: 07/24/17 05:29 07/24/17 05:29 Lab Results: I have reviewed the past 24 hour labs (Histoplasma antibody 1:16, urine histoplasma antigen negative, other serologies negative) Quality Measures - Stroke Symptom Onset Unknown: No Specialty Discharge - Follow Up or Referrals
[2017-07-26] MEDS: VANCOMYCIN INJ 1,250 MG in SODIUM CHLORIDE 0.9% 250 ML IV SCH ×2 (00:10→08:12)
[2017-07-26] MEDS: PIPERACILLIN/TAZOBACTAM 3,375 MG in SODIUM CHLORIDE 0.9% 100 ML IV SCH ×2 (04:04→11:07)
[2017-07-26] MEDS: ALBUTEROL 0.4 MG/ML 30 ML/BOTTLE PO SCH (05:01)
[2017-07-26] MEDS: ACYCLOVIR 200 MG CAPSULE PO SCH (08:13)
[2017-07-26] MEDS: PANTOPRAZOLE 40 MG TABLET PO SCH (08:13)
[2017-07-26] MEDS: MONTELUKAST 10 MG TABLET PO SCH (08:13)
--- NOTE | 2017-07-26 08:46 | Hospitalist Progress Note ---
Assessment and Plan (1) Pneumonitis Status: Ruled-out Assessment and plan: Today is day 5 of intravenous vancomycin for his acute bronchitis. He will be discharged after receiving his vancomycin today. Current Visit: Yes (2) Weight loss Status: Chronic Current Visit: Yes (3) COPD (chronic obstructive pulmonary disease) Status: Chronic Assessment and plan: He appears stable with no significant exacerbation of his chronic obstructive pulmonary disease. He continues to receive albuterol ipratropium nebulizer therapy. Arterial blood gases yesterday demonstrated pH 7.415, PCO2 48.5, and PO2 53.0. These are most compatible with chronic respiratory failure with hypoxemia. 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 Infectious diseases has recommended completing 5 days of intravenous vancomycin. Since his vancomycin began on 07/23, today would be the fourth day of vancomycin. Accordingly, I will continue the vancomycin through tomorrow and discharge from the hospital the day after tomorrow. Exam - Constitutional Vitals: Period Temp Pulse Resp BP Sys/Gamez Pulse Ox Last 24 Hr 97.5 F-97.9 F 89-100 18-20 115-140/80-89 92-95 General appearance: no acute distress - Head Head exam: Present: normal inspection - Neck Neck exam: Present: normal inspection - Respiratory Respiratory exam: Present: clear to auscultation bilaterally - Cardiovascular Cardiovascular exam: Present: regular rate and rhythm - GI/Abdominal GI/Abdominal exam: Present: normal bowel sounds, other (Nontender with no palpable masses or hepatosplenomegaly.) - Extremities Exam Extremities exam: Present: normal inspection - Skin Skin exam: Present: normal color, warm, intact Results - Labs CBC & BMP: 07/24/17 05:29 07/24/17 05:29 Quality Measures - Stroke Symptom Onset Unknown: No Specialty Discharge - Follow Up or Referrals Follow up with: Mirlande Carroll MD [Physician] - (3-4 APPOINTMENT)
[2017-07-26 09:35] VITALS: BP 135/85
[2017-07-26] MEDS ORDERED: THEOPHYLLINE ER 300 MG TABLET PO SCH (11:00)
[2017-07-26] MEDS ORDERED: predniSONE 10 MG TABLET PO SCH (11:00)
--- NOTE | 2017-07-26 11:20 | Infectious Disease Progress ---
Assessment and Plan (1) Dyspnea Status: Acute Assessment and plan: Patient generally much better than when he first was admitted. The only abnormal study with had is a histoplasma antibody but the titer is very low at 1 :16. This is not necessarily indicative of acute infection. I discussed the case with Dr. Rodríguez and patient probably had histoplasma in the past the scarring around left hilum. Most likely patient has chronic lung disease related to smoking. Recommendations: Patient completed 5 days of antibiotic therapy today. No need for antibiotics on discharge. I can see patient in the office in ~4 weeks time and I will repeat histoplasma serologies, to assess for fourfold rise in titer. If he does have a significant rise in the titers then this would be supportive of recent histoplasma infection. Current Visit: Yes (2) Pneumonitis Status: Ruled-out Assessment and plan: as above. Current Visit: Yes Infectious Disease - PN: Subj Interval history: Patient generally doing better, denies respiratory problems. Has not had fever. Infectious Disease Exam (PN) - Constitutional Vitals: Temp Pulse Resp BP Pulse Ox 97.2 F L 80 20 135/85 95 07/26/17 08:10 07/26/17 08:10 07/26/17 08:10 07/26/17 08:10 07/26/17 08:10 General appearance: no acute distress Exam: General appearance: Comfortable - Eye Eye exam: Present: EOMI. no icterus Pupils: Present: KATIE - Respiratory Respiratory exam: Occasional inspiratory wheeze heard today, no crepitations - Cardiovascular Cardiovascular exam: regular rate and rhythm, no murmurs - GI/Abdominal GI/Abdominal exam: normal bowel sounds, soft, non-tender, no organomegaly or mass - Extremities Exam Extremities exam: no edema - Skin Skin exam: no rash Results - Labs CBC & BMP: 07/24/17 05:29 07/24/17 05:29 Lab Results: I have reviewed the past 24 hour labs Quality Measures - Stroke Symptom Onset Unknown: No Specialty Discharge - Follow Up or Referrals Follow up with: Mirlande Carroll MD [Physician] - (3-4 APPOINTMENT)
--- NOTE | 2017-07-26 11:28 | Pulmonology Progress Note ---
Pulmonary - PN: Subj Interval history: Jose Rafael Pierceery, [facility]-, acting as scribe for Dr. Anton Barksdale Mr. Stuart is a 51-year-old white male who is on initial pulmonary consultation on 07/22/2017. At that time, our impressions were: 1. Probable bronchitis. Recent history of strep throat. Patient notes that he got better with penicillin. 2. Persistent nausea of undetermined etiology 3. Weight loss probably secondary to #2 and secondary to working outside in hot weather. 4. Abnormal chest x-ray. This will probably clipper and turner to be old histoplasmosis. I do not think we are going to find active disease but will look forward. 5. Abnormal liver function test. No past history of cholecystectomy 6. Hyperinflated lungs most prominent at the bases. This is probably emphysema from smoking as noted above. Look for alpha-1 antitrypsin deficiency. If this happens to be present we will have to look for associated liver disease 7. Difficulty urinating. History of BPH. Pain which radiates to the right testicle 07/23/2017. The patient was seen today along with Xiomara Oakes RN. We have discussed the case with Dr. Vallejo and coordinated our care. He is now been moved out of the negative pressure room in CCU and up to the medical floor. He states that his breathing is much improved. His chest x-ray remains fairly normal but with continued hyperlucency at the bases. Alpha-1 antitrypsin level is pending. Sputum Gram stain showed few gram-positive cocci, but sputum culture grew no organisms. Hepatitis screen was negative. The patient denies alcohol use. Ultrasound of the abdomen showed no abnormalities. Echocardiogram done 07/22/[address] Long showed EF 55%, mildly dilated right ventricle with normal systolic function, and mild aortic valve sclerosis without stenosis. The pulmonary artery pressure was not spoken to. He has been seen in urology consultation by Dr. Sandhu. His note has been reviewed. As noted before, the patient smoked marijuana fairly frequently until approximately 2 months ago. There is incidence of aspergillus infection secondary to marijuana use so we will check sputum for fungal stains and cultures. We are also going to obtain a urine drug screen, RA, OLGA, sed rate, and C-reactive protein. He has remained afebrile for the past 24 hours. Medications have been reviewed. We made no changes today. Labs have been reviewed. White count is 10,100 with 71.8% segs; H&H 15.1/45.4; platelet count 237,000; creatinine 1.00, BUN 18, electrolytes are normal; vancomycin trough 10.2; urinalysis yesterday showed no evidence of infection; hepatitis screen was negative; PSA 0.8; amylase and lipase are normal at 67 and 198.0 respectively; TSH and free T4 were normal at 2.010 and 1.15 respectively. 07/24/2017. The patient was seen today along with Alli Freeman RN. The patient 's room air ABGs this morning showed a PO2 of only 53.0. All things considered , we feel that it is necessary to proceed with CT of the chest with PE protocol. We have discussed this with Dr. Sharma as this will forego his discharge for the time being. Also, Dr. Valleoj's note yesterday was reviewed and she recommended 5 days of IV antibiotics with vancomycin and Zosyn and today is only day 3 of the patient's hospitalization. Clearly he is improved, but we agree with Dr. Vallejo's recommendations. Alpha-1 antitrypsin level is also still pending. Medications have been reviewed. We made no changes today. Labs been reviewed. White count is 8300 with 69.5% segs; H&H 14.5/41.7; platelet count 208,000; sed rate 34; C-reactive protein 2.23; creatinine 0.0, BUN 20, electrolytes are normal; rheumatoid factor was negative and OLGA screen was negative Microbiology was reviewed. There are no positive cultures. 07/25/2017. This morning the patient had pulmonary function tests. This showed small airways disease with rather large positive response to inhaled bronchodilators. Patient also appeared to have restrictive lung disease. This is not explained by his chest x-ray ordered a CT scan of his chest. He does have pectus excavatum but not quite enough to explain this amount. I reexamined him today and had him exhale in a certain way and it turns out that he has high pitch peripheral wheezes especially at the bases of his lungs which persist long beyond the end of expiration. Previously he was not moving enough air to produce wheezes. I have discussed this with Dr. Sharma who is agreeable to keeping the patient in the hospital for additional treatment. I think one day will probably prove the point and we can send him home on medicines by mouth. I am going to start him on IV Aminophyllin and will check a level tomorrow morning. He will have p.o. albuterol. I will give this as liquid since this is cheaper as an outpatient as compared to the pills. He will be on Singulair. He says he does not tolerate Solu-Medrol well so I will use a low dose of hydrocortisone phosphate IV push. Will continue his IV antibiotics. Patient has no evidence of alpha 1 antitrypsin deficiency. All studies for collagen vascular disease of also been negative. 07/26/2017. The patient was seen today along with Alli Freeman RN. Yesterday the patient was started on IV Aminophyllin and oral albuterol. He is also started on Solu-Cortef. He is tolerated all these medications fine, and on chest exam he has much better air movement with less wheeze. We had a long discussion with the patient today about medication compliance as well as medical compliance. He needs to absolutely abstain from any cigarette or marijuana smoke inhalation. We have converted his IV Aminophyllin to oral theophylline 300 mg twice daily. He will continue on the low-dose prednisone taper, and he needs to continue albuterol and Singulair indefinitely. His primary care physician is Dr. Gaston Bain and we will send a copy of our letter today to him. We have discussed the case with Dr. Carroll and coordinated our care. We feel that his histoplasma infection is almost certainly old, but she will follow him up in her office in approximately 4 weeks and repeat his serologies. Please see her note for more information. Medications have been reviewed. Labs have been reviewed. Theophylline level 3.1. Exam (Progress Note) - Constitutional Vitals: Period Temp Pulse Resp BP Sys/Gamez Pulse Ox Last 24 Hr 97.2 F-97.9 F 80-100 18-20 115-140/80-89 93-95 Exam: Chest... As above Heart no gallop Abdomen less tender in the right upper quadrant; bowel sounds are positive 4 Extremities with nothing to suggest acute deep venous thrombophlebitis Psychiatric oriented 3 Neurologic long-term motor function is intact Plan: The patient can now be safely discharged from a pulmonary standpoint. At discharge, we would recommend theophylline 300 mg twice daily, Albuterol liquid 2 mg 3 times daily, Singulair 10 mg daily, and prednisone 10 mg daily for 10 days then 10 mg every other day for 10 doses. He can continue his routine care with Dr. Gaston Bain. We did not make him a follow-up appointment to see us. Your plans for discharge are noted. We will sign off. Please reconsult as needed. Results - Labs CBC & BMP: 07/24/17 05:29 07/24/17 05:29 Specialty Discharge - Follow Up or Referrals Follow up with: Mirlande Carroll MD [Physician] - (3-4 APPOINTMENT)
[2017-08-06] MEDS ORDERED: predniSONE 10 MG TABLET PO SCH (09:00)
== END 2017-07-26 14:30 | disposition home or self-care (01) | DRG 191 ==
LOC: N.ED 10:21 → N.EDINP 14:40 → SUATTDRO 14:40 → N.CC 16:40 → N.5E 07-22 14:08
PROVIDERS: ADMIT Internal Medicine Infectious Disease